=== PATIENT | female | born 1980 | race Caucasian/White ===

== ENCOUNTER → 2016-12-06 08:02 | Observation (INO) ==
[2016-12-06 07:31] LABS: Bilirubin,Urine Negative (Negative); Blood,Urine Large (Negative); Clarity,Urine Cloudy (Clear); Color,Urine Yellow (Yellow); Glucose,Urine (UA) Normal (Normal); Ketones,Urine Negative (Negative); Leukocyte Esterase,Urine Moderate (Negative); Nitrite,Urine Negative (Negative); Protein,Urine Trace mg/dL (Neg-Trace); Specific Gravity,Urine 1.017 (1.010-1.025); Urobilinogen,Urine Normal (Normal)
[2016-12-06 07:34] LABS: Bacteria,Urine Moderate per hpf (None-Few); RBC,Urine 15-30 per hpf (0-3); Squamous Epithelial Cell,Urine Many per lpf (None-Few); WBC,Urine 30-50 per hpf (0-3)
--- NOTE | 2016-12-06 07:36 | Discharge Summary ---
Date of Encounter: 12/06/16 Time of Encounter: 07:39 - Discharge Diagnosis (1) 38 weeks gestation of Priority: Primary Status: Acute Comments: Patient presented with concern for possible rupture of membranes - nitrozine negative. Concerning for slight fever and possible tachycardia. However , temperature improved on its own and the tachycardia appears to have been more of an acceleration. Patient would like to go to [place] to follow up with her [facility]. As baby and mom are stable, will be discharged to follow with Dr Boone. (2) False labor Priority: Secondary Status: Acute - Discharge Medications Home Medications: Ferrous Sulfate [Iron] 325 mg PO 12/06/16 [History] Levothyroxine [Synthroid] 50 mcg PO 12/06/16 [History] Tablet 1 tab PO DAILY 12/06/16 [History] Allergies/Adverse Reactions: Allergies Amoxicillin Allergy (Verified 12/06/16 06:53) Hives Penicillins [PCN] Allergy (Verified 12/06/16 06:53) Hives Date of admission: 12/06/16 06:22 Primary care physician: Yordy Wilson MD Discharging clinician: Darryl Tello Anticipated date of discharge: 12/06/16 - Patient Status Disposition: Home, Self-Care Condition: Good Functional capacity at discharge: independent ambulation Overall status at discharge: patient is back to baseline - Discharge Instructions Follow Up With: Yordy Wilson MD [Primary Care Provider] - - Diet and Activity Activity: increase activity as tolerated Diet: advance to your usual diet Hospital Course [employer] Hospital course: Ms Isela Garcia is a 36yo F at 38 weeks + 5 days who presents with possible rupture of membranes. Patient reports that she woke up and the bed was wet. Discharge was slimy and pink. Patient reports some contractions but they are minor. She reports good movement. She denies CAO, vision changes , chest pain, SOB, or changes in bowel or bladder. Patient has history of one spontaneous and 2 vaginal deliveries. First delivery induced at 37 weeks for pre-eclampsia and 2nd was a term complicated by shoulder distocia. She follows with Dr. Boone and is scheduled for a on due to size of baby. Patient reports family history of blood clots but no problems personally. She states she is GBS negatie. Nitrozine negative. Time Attestation: Total time spent providing and/or coordinating discharge services: Exam - Constitutional General appearance IM: A&O X 3, no acute distress, answers questions appropriately - Respiratory Respiratory exam: Present: CTAB - Cardiovascular Cardiovascular exam IM: Present: RRR - GI/Abdominal GI/Abdominal exam IM: normal bowel sounds, soft - Neurological Exam Neurological exam: alert, CN II-XII intact, oriented X3
[~2016-12-06 08:02] MED LIST: Ringers Solution, Lactated 1,000 ML IVC ONE; Ringers Solution, Lactated 1,000 ML ONE
== END | disposition home or self-care (01) ==
LOC: 1NENULAB
PROVIDERS: ADMIT Student in an Organized Health Care Education/Training Program; ATTEND Student in an Organized Health Care Education/Training Program